=== PATIENT | female | born 1940 | race Caucasian/White ===

== ENCOUNTER 2021-09-05 16:13 | Emergency (ER) | payer MEDICARE, OTHER ==
[~2021-09-05] VITALS: Ht 152.4 cm; Wt 52.2 kg
[2021-09-05 19:03] LABS: Basophils # (auto) 0 10 ^3/uL (0-0.2); Basophils % (auto) 0.2 % (0.0-2.0); Eosinophils # (auto) 0 10 ^3/uL (0-0.8); Eosinophils % (auto) 0.2 % (0.0-7.0); Hematocrit 33.9 % (36.0-46.0); Hemoglobin 11.2 g/dL (12.2-16.2); Lymphocytes # (auto) 0.4 10 ^3/uL (0.4-5.4); Mean Corpuscular Hemoglobin 27.9 pg (28.0-32.0); Mean Corpuscular Hgb Conc. 33.1 g/dL (32.0-36.0); Mean Corpuscular Volume 84.3 fL (80.0-100.0); Monocytes # (auto) 0.8 10 ^3/uL (0-1.3); Monocytes % (auto) 4.6 % (0.0-12.0); Red Blood Cells 4.02 10^6/uL (4.0-5.20); Red Cell Distribution Width 20.9 % (11.8-14.3); White Blood Cell 18.3 10^3/uL (4.4-10.8)
[2021-09-05 19:18] LABS: Albumin 3.1 g/dL (3.4-5.0); Calcium 9.5 mg/dL (8.5-10.1); Potassium 4.2 mmol/L (3.5-5.1)
[2021-09-05 19:21] LABS: BUN/Creatinine Ratio 24.4
[2021-09-05 19:23] LABS: Bilirubin, Total 0.2 mg/dL (0.2-1.0); Total Protein 7.6 g/dL (6.4-8.2)
[2021-09-05 21:02] LABS: Urine Bacteria NONE SEEN /hpf (None Seen); Urine Blood Negative /uL (Negative); Urine Mucus FEW (None Seen); Urine WBC 2 /hpf (0 - 5)
[2021-09-06] VITALS: BP 125/59
== END 2021-09-06 00:59 | disposition home or self-care (01) ==
LOC: ER 16:13 → EDBD 16:13 → ER 09-06 00:59
DX: G89.4 Chronic pain syndrome (principal); I10 Essential (primary) hypertension
CPT/HCPCS: 36415; 71045; 72100; 80053; 81001; 83880; 84484; 85025; 93005